=== PATIENT | female | born 1955 | race Caucasian/White ===

== ENCOUNTER 2018-06-16 07:13 | Inpatient (IN) | payer BC ==
[2018-06-16] MEDS ORDERED: GABAPENTIN 300 MG CAP PO ONE (07:45)
[2018-06-16] MEDS ORDERED: ceFAZolin 2 GM/DEXTROSE 100 ML IV ONE (07:45)
[2018-06-16] MEDS ORDERED: ACETAMINOPHEN 500 MG TAB PO ONE (07:45)
[2018-06-16] MEDS ORDERED: LR 1,000 ML IV ONE (07:46)
[2018-06-16] MEDS ORDERED: THROMBIN (BOVINE) 20,000 UNIT VIAL TP ONE (08:20)
[2018-06-16] MEDS ORDERED: CHLORHEXIDINE GLUC HIBICLENS 118 ML BTL TP ONE (08:20)
[2018-06-16] MEDS ORDERED: BACITRACIN 50,000 UNITS/10 ML SYR IRR ONE (08:21)
[2018-06-16] MEDS ORDERED: BUPIVACAINE 0.25% 30 ML SDV ONE (08:21)
[2018-06-16] MEDS ORDERED: EPINEPHrine 1 MG/ML INJ ONE (08:21)
--- NOTE | 2018-06-16 10:06 | PDHPUP ---
History & Physical Update H&P update statement: This history and physical update is based on an assessment of the patient which was completed after admission or registration (within 24 hours), but prior to the surgery/procedure. H&P update: H&P reviewed & patient examined, no change in patient's condition since H&P completed (consents signed and site marked. all questions answered.)
[2018-06-16] MEDS ORDERED: MIDAZOLAM 2 MG/2 ML VIAL IVP ONE (10:26)
--- NOTE | 2018-06-16 10:27 | PDANEPAE ---
ANE Past Medical History - Cardiovascular History Hx Hypertension: No Hx Arrhythmias: No Hx Chest Pain: No Hx Coronary Artery / Peripheral Vascular Disease: No Hx CHF / Valvular Disease: No Hx Palpitations: No Cardiovascular History Comment: clots after stroke - Pulmonary History Hx COPD: No Hx Asthma/Reactive Airway Disease: No Hx Recent Upper Respiratory Infection: No Hx Oxygen in Use at Home: No Hx Sleep Apnea: No Sleep Apnea Screening Result - Last Documented: Negative - Neurologic History Hx Cerebrovascular Accident: Yes Hx Seizures: No Hx Dementia: No Neurologic History Comment: brain bleed 02/2017. stroke 03/2017 was hospitalized at [facility]. residual effects are loss of right peripheral vision - Endocrine History Hx Diabetes: No - Renal History Hx Renal Disorders: No - Liver History Hx Hepatic Disorders: No - Neurological & Psychiatric Hx Hx Neurological and Psychiatric Disorders: Yes Neurological / Psychiatric History Comment: anxiety - Cancer History Hx Cancer: No - Congenital Disorder History Hx Congenital Disorders: No - GI History Hx Gastrointestinal Disorders: No - Other Health History Other Health History: wears glasses - Chronic Pain History Chronic Pain: Yes (sciatica, wrists) - Surgical History Prior Surgeries: emergent , blood did not clot. right wrist surgery ANE Review of Systems Review of Systems: - Exercise capacity METS (RN): 4 METS ANE Patient History - Allergies Allergies/Adverse Reactions: Sulfa (Sulfonamide Antibiotics) Allergy (Verified 06/05/18 10:35) Rash - Home Medications Home Medications: Aspirin [Aspirin 81mg (*)] 81 mg PO DAILY 06/02/18 [Last Taken 06/09/18] Herbals/Supplements -Info Only 1 ea PO DAILY 06/02/18 [Last Taken 06/09/18] - NPO status NPO Since - Liquids (Date): 06/16/18 NPO Since - Liquids (Time): 06:00 NPO Since - Solids (Date): 06/15/18 NPO Since - Solids (Time): 20:00 - Smoking Hx Smoking Status: Never smoked - Family Anes Hx Family Hx Anesthesia Complications: none ANE Labs/Vital Signs - Vital Signs Blood Pressure: 147/90 Heart Rate: 74 Respiratory Rate: 18 O2 Sat (%): 95 Height: 152.4 cm Weight: 62.142 kg ANE Physical Exam - Airway Neck exam: FROM Mallampati Score: Class 2 Mouth exam: normal dental/mouth exam - Pulmonary Pulmonary: no respiratory distress - Cardiovascular Cardiovascular: regular rate and rhythym - ASA Status ASA Status: II ANE Anesthesia Plan Anesthesia Plan: general endotracheal anesthesia
[2018-06-16] MEDS ORDERED: ONDANSETRON 4 MG/2 ML VIAL ONE (10:37)
[2018-06-16] MEDS ORDERED: PROPOFOL/EMULSION 500 MG/50 ML BOTTLE IV ONE ×2 (10:37→11:21)
[2018-06-16] MEDS ORDERED: ROCURONIUM 50 MG/5 ML VIAL ONE (10:37)
[2018-06-16] MEDS ORDERED: PHENYLEPHRINE 10 MG/ML SDV ONE (10:37)
[2018-06-16] MEDS ORDERED: LIDOCAINE 2% 100 MG/5 ML SYR ONE (10:37)
[2018-06-16] MEDS ORDERED: DEXAMETHASONE 4 MG/ML VIAL ONE ×2 (10:37)
[2018-06-16] MEDS ORDERED: ALBUTEROL 3 ML DEYVIAL IH PRN (11:57)
[2018-06-16] MEDS ORDERED: NALOXONE HCL 0.4 MG/ML INJ IVP PRN ×2 (11:57→14:17)
[2018-06-16] MEDS ORDERED: fentaNYL 100 MCG/2 ML INJ IVP PRN (11:57)
[2018-06-16] MEDS ORDERED: ONDANSETRON 4 MG/2 ML VIAL IVP PRN ×2 (11:57→12:25)
[2018-06-16] MEDS ORDERED: morphINE PF 0.2 MG in SYRINGE INTRATHECAL 1 SYR IT ONE (12:00)
[2018-06-16] MEDS ORDERED: LACTULOSE 20 GM/30 ML UDCUP PO PRN (12:25)
[2018-06-16] MEDS ORDERED: MAGNESIUM HYDROXIDE 30 ML UDCUP PO PRN (12:25)
[2018-06-16] MEDS ORDERED: diphenhydrAMINE 25 MG CAP PO PRN (12:25)
[2018-06-16] MEDS ORDERED: POLYETHYLENE GLYCOL 3350 17 GM PKT PO PRN (12:25)
[2018-06-16] MEDS ORDERED: BISACODYL 10 MG SUPP PR PRN (12:25)
[2018-06-16] MEDS ORDERED: ONDANSETRON DISINTEGRATING 4 MG TAB PO PRN (12:25)
[2018-06-16] MEDS ORDERED: NS 1,000 ML IV SCH (12:30)
[2018-06-16] MEDS ORDERED: GLYCOPYRROLATE 0.2 MG/1 ML VIAL ONE ×2 (13:04)
[2018-06-16] MEDS ORDERED: NEOSTIGMINE METHYLSULFATE 5 MG/5 ML SYR ONE (13:04)
[2018-06-16] MEDS ORDERED: PROPOFOL 200 MG/20 ML VIAL ONE (13:09)
--- NOTE | 2018-06-16 13:55 | POSTANESTH ---
Post Anesthetic Evaluation Cardiovascular Status: Similar to Pre-Op Cond Respiratory Status: Similar to Pre-op Cond. Level of Consciousness/Mental Status: Mildly Sleepy, Arousable Pain Control: Adequate, Prn Tx Ordered Nausea/Vomiting Control: Adequate, Prn Tx Ordered Complications Possibly Related to Anesthesia: None Noted
[2018-06-16] MEDS ORDERED: ceFAZolin 2 GM/DEXTROSE 100 ML IV SCH (14:00)
--- NOTE | 2018-06-16 14:05 | POSTOPPROG ---
Post Op Note Date of Operation: 06/16/18 Surgeon: Clyde Pugh Pulper: Karishma Tyler NP Anesthesiologist: Jesenia Anesthesia: GET(General Endotracheal) Pre-op Diagnosis: Lumbar stenosis Post-op Diagnosis: Lumbar fusion Procedure: L5-S1 TLIF Inf/Abcess present in the surg proc area at time of surgery?: No Depth: Deep Incisional (Fascial) EBL: 100-500 Total fluids administered: see anesthesia Complications: none Drains: Rocky Watts Date of Surgery: 06/16/18 Post Op Day: 0 Assessment/Plan: Assessment: 63 yr old F s/p L5-S1 TLIF Plan: -Admit Med surg -LINO to bulb suction -IT Duramorph given intraop -PT/OT -Brace on when out of bed -Post op xrays in am -Call with questions/concerns Subjective: waking up in pacu Objective: waking up in pacu MAEx4 5/5 BLE Sensation intact to light touch BLE LINO patent Dressing CDI Appropriate Neuro Check Frequency Ordered: Yes
[2018-06-16] MEDS ORDERED: fentaNYL 100 MCG/2 ML INJ ONE (14:27)
--- NOTE | 2018-06-16 15:54 | PDMN ---
Medical Necessity Medical necessity: Pt meets inpt criteria per MD order and [facility], Lumbar Fusion, 2 days, IP only list. 63 y/o w/lumbar stenosis admitted for surg: L5- S1 TLIF and post-op care.
--- NOTE | 2018-06-16 17:03 | GOP ---
[f rep st] OPERATIVE REPORT DATE OF OPERATION: 06/16/2018 SURGEON: Clyde Pugh MD EDITOR CONTINUITY AND SCRIPT: Karishma Tyler NP ANESTHESIA: General. PREOPERATIVE DIAGNOSIS: 1. 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 2. Bilateral lower extremity radiculopathy. 3. Scoliosis. 4. Treatment refractory to nonoperative intervention. POSTOPERATIVE DIAGNOSIS: 1. 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 2. Bilateral lower extremity radiculopathy. 3. Scoliosis. 4. Treatment refractory to nonoperative intervention. PROCEDURE PERFORMED: 1. Posterior arthrodesis with approach to L5 and S1. 2. Posterolateral fusion with bilateral pedicle screw placement into L5 and S1 from the Twirl TV 4.75 Stripeyager system. 3. Use of intraoperative 3-D Stealth navigation. 4. Use of intraoperative fluoroscopy, less than 1 hour of physician time. 5. Use of neuromonitoring. 6. Use of the operative microscope. 7. Injection of preservative-free intrathecal narcotics. 8. Brush decompressive laminectomy, L5-S1, with pars resection on left side. 9. Left-sided L5-S1 transforaminal lumbar interbody fusion with a 7 x 23 mm titanium and polyetheretherketone Elevate cage for the morselized autograft and allograft. 10. Posterolateral fusion on the right between L5 and S1 with morselized autograft and allograft. FINDINGS: per imaging COMPLICATIONS: None. SPECIMENS: None. ESTIMATED BLOOD LOSS: 150 mL. INDICATIONS: The patient is a very pleasant woman who unfortunately is suffering from left lower extremity radiculopathy. She had evidence of a scoliosis and a grade 1 spondylolisthesis of L5-S1 with bilateral pars defects and severe neural compression left > right. After discussion of risks, benefits , and treatment alternatives, and after failing nonoperative intervention, we decided to proceed with surgery as described above. DESCRIPTION OF PROCEDURE: The patient was brought into the operating theater, and underwent general endotracheal anesthesia without complication. She had Venodynes, GONZALO hose and the appropriate lines placed by Anesthesia. She was flipped prone onto the Rocky table, and all bony processes inspected and padded. The lower lumbar region was then prepped and draped in usual sterile surgical fashion. A time-out was completed per protocol and the patient received antibiotics within 1 hour of incision. Using lateral fluoroscopy and a spinal needle, we picked our entry point to the L5-S1 level. This was marked in the midline. The incision was taken down with the use of a scalpel blade. Using monopolar, the incision was then taken down in the midline through the lumbodorsal fascia and a subperiosteal dissection carried out to the L5-S1 level. Because the trajectory of the screws was going to be very lateral to medial, I attached a 3-D Stealth navigation clamp to the spinous process of L4 and completed a 3-D Stealth navigation spin. Using 3-D Stealth navigation, we then placed percutaneous screws into L5 and S1. We then placed a 6.5 x 40 mm screw on the left at L5, a 6.5 x 45 mm screw on the right L5 and left at S1, and a 6.5 x 50 mm screw on the right S1, all from the Twirl TV 4.75 Voyager system. Another 3D Stealth navigation spin demonstrated good placement of the hardware. At this point, the microscope was brought into field to assist with microscopic dissection and to maintain illumination and magnification. Using a combination of the bur tip on the drill bit, Kerrison punches and Leksell rongeur, we completed a Brush laminectomy at L5-S1. We then completed a complete resection of the pars on the left side and distracted the interspace. We completed a left -sided L5-S1 diskectomy and prepared the cartilaginous endplates. We measured the interbody space and placed a 7 x 23 mm titanium and PEEK Elevate cage filled with morselized autograft and allograft anteriorly and towards midline. We packed additional morcellized autograft into the disk space for the interbody fusion. We let down the distraction and decorticated the bone on the right side between L5 and S1. We placed 2 percutaneous rods with a 45 mm on the left at L5-S1 and a 40 mm wayne on the right at L5-S1, and secured them down with cap screws, which were then tightened per manufacture's setting once we verified that the rods were passed all the way through the towers on the x-rays. The wound was irrigated copiously with bacitracin irrigation. We injected preservative-free intrathecal narcotics. We placed morselized autograft and allograft for the posterolateral fusion on the right side at L5-S1. A drain was left in the subfascial space. The wound was then closed in multiple layers including Vicryl sutures in the deep layers and Dermabond for the skin. The patient's wound was dressed sterilely. She was flipped supine onto the transfer cart, where she was awakened, extubated, and taken to the recovery room in stable condition. There were no complications and no noted changes on neuromonitoring throughout the procedure. /[id number]/MODL MTDD
[2018-06-16] MEDS: ACETAMINOPHEN 500 MG TAB PO SCH ×2 (18:11→22:16)
[2018-06-16] MEDS: ceFAZolin 2 GM/DEXTROSE 100 ML IV SCH (18:43)
[2018-06-16] MEDS: FAMOTIDINE 20 MG TAB PO SCH (22:16)
[2018-06-16] MEDS: SENNOSIDES/DOCUSATE SODIUM TAB PO SCH (22:17)
[2018-06-17] MEDS: ceFAZolin 2 GM/DEXTROSE 100 ML IV SCH (02:23)
[2018-06-17] MEDS: ACETAMINOPHEN 500 MG TAB PO SCH ×3 (04:39→22:32)
[2018-06-17 04:52] LABS: PLATELET COUNT 210 10^3/uL (150-400)
[2018-06-17] MEDS: oxyCODONE IR 5 MG TAB PO PRN ×5 (06:44→20:50)
--- NOTE | 2018-06-17 06:47 | NEUSURGPN ---
Date of Surgery: 06/16/18 Post Op Day: 1 Assessment/Plan: Assessment: 63 yr old F that is s/p L5-S1 TLIF POD #1 Plan: -s/p L spine surgery: Pt states that she has expected lower back pain. She has some mild anterior left thigh pain -continue with med/surg -LINO to bulb suction-working well -IT Duramorph given intraop -PT/OT-pending -Brace on when out of bed -Post op xrays this am -warning signs given -call with questions/concerns -pt understands and agrees Subjective: Awake and alert. NAD. Eating/drinking and voiding. No f/c/n/v/d. No chan/neck/ chest/abd or gu complaints. Objective: AAO x 3, PERRLA/EOMI no droop CN 2-12 grossly intact +lt touch 5/5 BUE/BLE = CDI LINO in place and working well Neuro Check Frequency: per routine Urinary Catheter in Place: No Catheter Insertion Date: 06/16/18 - Physician Discussed Patient with : Lexy Neurosurgery Physical Exam - Vitals, I&O, Labs I and O 06/16/18 06/17/18 06/18/18 05:59 05:59 05:59 Intake Total 1200 Output Total 1500 Balance -300 Weight 62.142 kg Intake: Oral (ml) 500 IV Intake (ml) 700 Output: Urine (ml) 1275 Catheter 1275 Estimated Blood Loss (ml) 150 LINO Drain Output (ml) 75 Back Rocky Watts 75 Other: Intake Quantity Yes Sufficient Vital Signs Temp Pulse Resp BP Pulse Ox 36.7 C 68 16 93/50 L 98 06/17/18 04:00 06/17/18 04:00 06/17/18 04:00 06/17/18 04:00 06/17/18 04:00 Laboratory Results 06/17/18 04:30 06/17/18 04:30 ICD10 Worksheet Patient Problems: Problems Problem Status Onset Arthrodesis status Acute Lumbar radicular pain Acute Lumbar stenosis Acute - ICD10 Problem Qualifiers (1) Lumbar stenosis (2) Lumbar radicular pain (3) Arthrodesis status
[2018-06-17] MEDS: SENNOSIDES/DOCUSATE SODIUM TAB PO SCH ×2 (09:59→20:50)
[2018-06-17] MEDS: METHOCARBAMOL 750 MG TAB PO PRN ×3 (09:59→22:14)
[2018-06-17] MEDS: ENOXAPARIN 40 MG/0.4 ML SYR SC SCH (09:59)
[2018-06-17] MEDS: FAMOTIDINE 20 MG TAB PO SCH ×2 (09:59→20:49)
--- NOTE | 2018-06-17 16:03 | ASMTCMCOM ---
CM Note CM Note Notes: Pt had planned surgery, resides alone. Pt has family/friend to stay with her at d/c. PT/OT clear pt for home. ANticipate pt will d/c when medically stable, no CM d/c needs identified. CM available for changes/needs. Date Signed: 06/17/2018 04:02 PM Electronically Signed By:TERESA Graham
[2018-06-18] MEDS: METHOCARBAMOL 750 MG TAB PO PRN ×4 (04:28→21:42)
[2018-06-18] MEDS: oxyCODONE IR 5 MG TAB PO PRN ×4 (05:27→18:45)
[2018-06-18] MEDS: ACETAMINOPHEN 500 MG TAB PO SCH ×3 (05:27→21:42)
--- NOTE | 2018-06-18 07:55 | NEUSURGPN ---
Date of Surgery: 06/16/18 Post Op Day: 2 Assessment/Plan: Assessment: 63 yr old F that is s/p L5-S1 TLIF POD #2 Plan: -s/p L spine surgery: Pt states that she has expected lower back pain that is better from yesterday. She had some mild anterior left thigh pain that is better as well. She does have some left calf pain that is crampy in nature -US of the LLE ordered -continue with med/surg -LINO to be removed today -IT Duramorph given intraop -PT/OT-CPM -Brace on when out of bed -Post op xrays pending this am -warning signs given -call with questions/concerns -pt understands and agrees Subjective: Awake and alert. NAD. Eating/drinking and voiding. No f/c/n/v/d. No chan/neck/ chest/abd or gu complaints. LLE calf is sore and achey. No upper thigh complaints today. Objective: AAO x 3, PERRLA/EOMI no droop CN 2-12 grossly intact +lt touch 5/5 BUE/BLE = CDI LINO in place and working well-to be pulled this am she has some left calf achiness. Neuro Check Frequency: per routine Urinary Catheter in Place: No Catheter Insertion Date: 06/16/18 - Physician Discussed Patient with : Lexy Patient Seen by : Lexy Neurosurgery Physical Exam - Vitals, I&O, Labs I and O 06/17/18 06/18/18 06/19/18 05:59 05:59 05:59 Intake Total 1200 600 Output Total 1500 1270 Balance -300 -670 Weight 62.142 kg Intake: Oral (ml) 500 600 IV Intake (ml) 700 Output: Urine (ml) 1275 1200 Catheter 1275 Toilet 1200 Estimated Blood Loss (ml) 150 LINO Drain Output (ml) 75 70 Back Rocky Watts 75 70 Other: Intake Quantity Yes Yes Sufficient Number of Voids Toilet 1 Vital Signs Temp Pulse Resp BP Pulse Ox 36.6 C 69 15 112/59 L 96 06/18/18 00:00 06/18/18 00:00 06/18/18 00:00 06/18/18 00:00 06/18/18 00:00 Laboratory Results 06/17/18 04:30 06/17/18 04:30 ICD10 Worksheet Patient Problems: Problems Problem Status Onset Arthrodesis status Acute Lumbar radicular pain Acute Lumbar stenosis Acute - ICD10 Problem Qualifiers (1) Lumbar stenosis (2) Lumbar radicular pain (3) Arthrodesis status
[2018-06-18] MEDS: ENOXAPARIN 40 MG/0.4 ML SYR SC SCH (08:24)
[2018-06-18] MEDS: SENNOSIDES/DOCUSATE SODIUM TAB PO SCH ×2 (08:26→21:43)
[2018-06-18] MEDS: FAMOTIDINE 20 MG TAB PO SCH ×2 (08:28→21:43)
[2018-06-18] MEDS: GABAPENTIN 300 MG CAP PO SCH ×2 (15:44→21:43)
[2018-06-19] MEDS: oxyCODONE IR 5 MG TAB PO PRN ×3 (04:24→19:05)
[2018-06-19] MEDS: ACETAMINOPHEN 500 MG TAB PO SCH ×3 (05:35→22:38)
[2018-06-19] MEDS: METHOCARBAMOL 750 MG TAB PO PRN ×2 (07:39→17:37)
[2018-06-19] MEDS: ENOXAPARIN 40 MG/0.4 ML SYR SC SCH (08:11)
[2018-06-19] MEDS: GABAPENTIN 300 MG CAP PO SCH ×3 (08:12→22:38)
[2018-06-19] MEDS: FAMOTIDINE 20 MG TAB PO SCH ×2 (08:12→22:38)
[2018-06-19] MEDS: SENNOSIDES/DOCUSATE SODIUM TAB PO SCH ×2 (08:13→22:37)
--- NOTE | 2018-06-19 08:36 | NEUSURGPN ---
Date of Surgery: 06/16/18 Post Op Day: 3 Assessment/Plan: 63 yr old F that is s/p L5-S1 TLIF POD #3. Post op films show stable hardware in good alignment. LLE pain which was worse initially after surgery is improving. US of LLE negative. Plan: -continue with med/surg -PT/OT-CPM -Brace on when out of bed -plan for Dispo later today if pt pain remains controlled. -call with questions/concerns Dw Dr. Pugh. Subjective: LLE pain better today no weakness. Objective: VSS AAOx4 up in chair HUMBERTO Tapia (states visual acuity on right is impaired, not apparent grossly) MAEx4, 5/5= SILT incision clean, dry intact, dressed Catheter Insertion Date: 06/16/18 - Physician Discussed Patient with : Lexy Neurosurgery Physical Exam - Vitals, I&O, Labs I and O 06/18/18 06/19/18 06/20/18 05:59 05:59 05:59 Intake Total 600 350 500 Output Total 1270 750 400 Balance -670 -400 100 Intake: Oral (ml) 600 350 500 Output: Urine (ml) 1200 750 400 Toilet 1200 750 400 LINO Drain Output (ml) 70 Back Rocky Watts 70 Other: Intake Quantity Yes Sufficient Number of Voids Toilet 1 1 Vital Signs Temp Pulse Resp BP Pulse Ox 36.8 C 84 14 104/69 94 06/19/18 07:29 06/19/18 07:29 06/19/18 07:29 06/19/18 07:29 06/19/18 07:29 Laboratory Results 06/17/18 04:30 06/17/18 04:30 ICD10 Worksheet Patient Problems: Problems Problem Status Onset Arthrodesis status Acute Lumbar radicular pain Acute Lumbar stenosis Acute
--- NOTE | 2018-06-19 16:16 | ASMTCMCOM ---
CM Note CM Note Notes: Spoke with RN, patient will likely d/c on Friday. No needs identified at this time. CM available should something change. Plan: Home with family. Date Signed: 06/19/2018 04:11 PM Electronically Signed By:Britney Bennett RN
[2018-06-20] MEDS: METHOCARBAMOL 750 MG TAB PO PRN ×2 (06:01→12:25)
[2018-06-20] MEDS: ACETAMINOPHEN 500 MG TAB PO SCH (06:01)
[2018-06-20] MEDS: oxyCODONE IR 5 MG TAB PO PRN ×2 (06:02→12:25)
[2018-06-20] MEDS: SENNOSIDES/DOCUSATE SODIUM TAB PO SCH (08:11)
[2018-06-20] MEDS: FAMOTIDINE 20 MG TAB PO SCH (08:11)
[2018-06-20] MEDS: GABAPENTIN 300 MG CAP PO SCH (08:11)
[2018-06-20] MEDS: ENOXAPARIN 40 MG/0.4 ML SYR SC SCH (08:12)
[2018-06-20 08:28] VITALS: BP 118/71
--- NOTE | 2018-06-20 09:34 | NEUSURGPN ---
Date of Surgery: 06/16/18 Post Op Day: 4 Assessment/Plan: Assessment: 63 yr old F that is s/p L5-S1 TLIF POD #4 Plan: -post op films show stable hardware in good alignment -LLE pain which was worse initially after surgery is improving. US of LLE negative. No swelling of the leg -PT/OT ordered -if clears therapy then ok for dc later today -continue with med/surg until dc later today -CDI -Brace on when out of bed-tolerating well-no skin issues -plan for Dispo later today if pt pain remains controlled and cleared by therapies/RN -call with questions/concerns -pt understands and agrees -d/w Dr. Pugh Subjective: Awake and alert. NAD. Eating/drinking and voiding. No f/c/n/v/d. No chan/neck/ chest/abd or gu complaints. Objective: AAO x 3, PERRLA/EOMI no droop CN 2-12 grossly intact +lt touch 5/5 BUE/BLE = CDI Neuro Check Frequency: per routine Urinary Catheter in Place: No Catheter Insertion Date: 06/16/18 - Physician Discussed Patient with : Lexy Neurosurgery Physical Exam - Vitals, I&O, Labs I and O 06/19/18 06/20/18 06/21/18 05:59 05:59 05:59 Intake Total 350 950 Output Total 750 1050 Balance -400 -100 Intake: Oral (ml) 350 950 Output: Urine (ml) 750 1050 Toilet 750 1050 Other: Intake Quantity Yes Sufficient Number of Voids Toilet 1 1 Vital Signs Temp Pulse Resp BP Pulse Ox 36.6 C 78 16 118/71 95 06/20/18 08:00 06/20/18 08:00 06/20/18 08:00 06/20/18 08:00 06/20/18 08:00 Laboratory Results 06/17/18 04:30 06/17/18 04:30 ICD10 Worksheet Patient Problems: Problems Problem Status Onset Arthrodesis status Acute Lumbar radicular pain Acute Lumbar stenosis Acute - ICD10 Problem Qualifiers (1) Lumbar stenosis (2) Lumbar radicular pain (3) Arthrodesis status
--- NOTE | 2018-06-20 09:55 | ASMTLACE ---
KAPIL Length of stay for Answers: 4-6 days current admission Acuity / Level of Answers: Yes Care: Did the patient have an inpatient admission? Comorbidities - select Answers: Cerebrovascular disease all that apply (CVA, TIA, aneurysms, vasc ular dementia) Opioid dependence / Chronic pain # of Emergency department Answers: 0 visits in the last 6 months Social determinants Answers: Mental health diagnosis (anxiety, depression, pers onality disorders, etc.) Score: 15 Date Signed: 06/20/2018 09:54 AM Electronically Signed By:Senia Whiteside RN
--- NOTE | 2018-06-29 19:47 | GDS ---
[f rep st] DISCHARGE SUMMARY PRIMARY DIAGNOSIS: Lumbar stenosis. OPERATIONS AND PROCEDURES: L5-S1 transforaminal lumbar interbody fusion on June 16, 2018. HOSPITAL COURSE: Patient presented to [facility] on June 16, 2018, for an L5-S1 tra nsforaminal lumbar interbody fusion with Dr. Clyde Pugh. Please see Dr. Pugh's operative note f or further details. After the operation, the patient was in stable condition and transferred from [facility] to the PACU and then to the postsurgical floor. While on the floor, the patient received physic al and occupational therapy, as well as pain management. All drains and catheters were removed, and the patient was in stable condition and subsequently discharged to home on June 20, 2018. Patient w ill follow up in the office for a postoperative visit in the next 2-3 weeks. Patient has been instru cted to contact our office with any questions or concerns at [phone]. COMPLICATIONS: None. DISCHARGE CONDITION: Stable. DISCHARGE INSTRUCTIONS: Patient to avoid bending or twisting. Patient to avoid lifting greater than 10 pounds. Patient has been instructed to wear her brace anytime she is out of bed except in the ower. Patient was instructed to avoid any NSAIDs for 6 months and understands our dental prophylaxis recommendations. Patient is to avoid submerging her incision until seen at her postoperative visit. Patient will call our office with any questions or concerns at [phone]. /[id number]/MODL
== END 2018-06-20 13:12 | disposition home or self-care (01) | DRG 455 ==
LOC: F3N 07:13
PROVIDERS: ADMIT Neurological Surgery; ATTEND Neurological Surgery
PROC: 4A1004G Monitoring of Central Nervous Electrical Activity, Intraoperative, Open Approach (ICD-10-PCS; principal; 2018-06-16 09:30)
PROC: 0SG3071 Fusion of Lumbosacral Joint with Autologous Tissue Substitute, Posterior Approach, Posterior Column, Open Approach (ICD-10-PCS; principal; 2018-06-16 09:30)
PROC: 8E0WXBZ Computer Assisted Procedure of Trunk Region (ICD-10-PCS; principal; 2018-06-16 09:30)
PROC: 0SG30AJ Fusion of Lumbosacral Joint with Interbody Fusion Device, Posterior Approach, Anterior Column, Open Approach (ICD-10-PCS; principal; 2018-06-16 09:30)
DX: M48.062 Spinal stenosis, lumbar region with neurogenic claudication (principal); M43.17 Spondylolisthesis, lumbosacral region; M51.17 Intervertebral disc disorders with radiculopathy, lumbosacral region; M47.27 Other spondylosis with radiculopathy, lumbosacral region; M41.87 Other forms of scoliosis, lumbosacral region; F41.9 Anxiety disorder, unspecified; E78.5 Hyperlipidemia, unspecified
CPT/HCPCS: 97116-GP; 97161-GP; 97166-GO; 97530-GP; 97535-GO; C1713; J0171; J0690; J1100; J1650; J2001; J2250; J2270; J2274; J2370; J2405; J2704; J2710; J3010